=== PATIENT | female | born 1995 | race Two or more races ===

== ENCOUNTER 2017-06-17 10:19 | Emergency (ER) | payer OTHER ==
[2017-06-17] MEDS: IBUPROFEN 800 MG TAB PO ×2 (12:15)
== END 2017-06-17 12:15 | disposition home or self-care (01) ==
LOC: M ED 10:19
DX: S70.02XA Contusion of left hip, initial encounter (principal); V49.9XXA Car occupant (driver) (passenger) injured in unspecified traffic accident, initial encounter; Y92.410 Unspecified street and highway as the place of occurrence of the external cause; Y93.9 Activity, unspecified; Y99.9 Unspecified external cause status; F17.200 Nicotine dependence, unspecified, uncomplicated; Z79.3 Long term (current) use of hormonal contraceptives
CPT/HCPCS: 73502

== ENCOUNTER 2020-02-02 19:05 | Emergency (ER) | payer OTHER ==
[~2020-02-02] VITALS: Ht 157.5 cm; Wt 61.0 kg
[~2020-02-02 19:05] MED LIST: bcp PO
[2020-02-02] MEDS ORDERED: TOPA1TAB PO (19:14)
[2020-02-02] MEDS ORDERED: TEST200I14 IM (19:14)
[2020-02-02] MEDS ORDERED: PRAZ2CAP PO (19:14)
[2020-02-02] MEDS ORDERED: IBUPROFEN 800 MG TAB PO ONE (21:45)
[2020-02-02 22:41] LABS: CK-MB VALUE MASS < 1.0 NG/ML (<3.6); CPK CREATINE PHOSPHOKINASE 210 U/L (26-192); MB/CK RELATIVE INDEX 0.48 (< OR =4); TROPONIN I < 0.02 NG/ML (< 0.10)
[2020-02-02 23:04] VITALS: BP 121/69
--- NOTE | 2020-02-03 06:39 | ECGEPIP ---
[facility] - ED Test Date: 2020-02-02 Pat Name: CISCO MOROCHO Department: Room: - Gender: Female Marketing Finance Manager: FARIBA : 1995 Requested By: HEDY Posadas PA-C Order Number: [id number] Reading MD: Valerie Vargas Measurements Intervals [place] Rate: 57 P: 51 AR: 176 QRS: 97 QRSD: 98 T: 56 QT: 387 QTc: 380 Interpretive Statements SINUS BRADYCARDIA WITH SINUS ARRHYTHMIA BORDERLINE RIGHT AXIS DEVIATION DELAYED R WAVE PROGRESSION NONSPECIFIC ST T WAVE CHANGES NO PRIOR ECG FOR COMPARISON Electronically Signed on 02-03-2020 6:39:06 EST by Valerie Vargas
== END 2020-02-02 23:07 | disposition home or self-care (01) ==
LOC: M ED 19:05
DX: R07.89 Other chest pain (principal); N64.4 Mastodynia; Z79.899 Other long term (current) drug therapy; F17.210 Nicotine dependence, cigarettes, uncomplicated; F12.20 Cannabis dependence, uncomplicated

== ENCOUNTER → 2020-03-06 | Outpatient (CLI) | payer OTHER ==
[~2020-03-06] MED LIST changes: +PRAZ2CAP PO; +TEST200I14 IM; +TOPA1TAB PO
--- NOTE | 2020-03-06 13:12 | REP ---
INDICATION: MERVIN BREAST TENDERNESS ; MERVIN BREAST TENDERNESS,LT BREAST LUMP. COMPARISON: None TECHNIQUE: MLO and CC views of both breasts were performed with tomosynthesis. Focused right breast ultrasound performed. The patient indicates a palpable lump medial right breast, which isn't marked on the skin. FINDINGS: Breast parenchyma is extremely dense bilaterally limiting the sensitivity of mammogram. No mass or architectural distortion is seen bilaterally. There are no clustered microcalcifications. Real-time sonographic evaluation of right breast performed at the site of the palpable lump. No cystic or solid nodule is seen. The Volpara volumetric breast density pattern is D. IMPRESSION: BIRADS/ACR category 1, negative. Dense breast parenchyma bilaterally. No mass or clustered microcalcifications on mammography. No sonographic evidence of mass in the right breast in the region of the reported palpable lump. A negative mammogram and ultrasound should not deter biopsy if there is a clinically suspicious palpable mass present. Clinical correlation and follow-up recommended. This patient's Tyrer-Cuzick lifetime breast cancer risk assessment score is 14.9%. This mammogram was interpreted with the aid of an FDA-approved computer-aided detection system. The patient states she had a clinical breast exam in February 2020.. The patient letter being requested is and 2. RECOMMENDATION: Recommend clinical correlation and follow-up. <Electronically signed by Ej James > 03/06/20 [id number]
== END ==
LOC: M WHC 08:34
PROVIDERS: ATTEND Nurse Practitioner Family
DX: Z12.39 Encounter for other screening for malignant neoplasm of breast (principal); N63.20 Unspecified lump in the left breast, unspecified quadrant; N64.4 Mastodynia
CPT/HCPCS: 76642; 77066; G0279

== ENCOUNTER 2020-06-02 07:27 | Emergency (ER) | payer OTHER ==
[~2020-06-02] VITALS: Ht 157.5 cm; Wt 60.9 kg
[2020-06-02] MEDS ORDERED: GABA-1171 PO (07:36)
[2020-06-02] MEDS ORDERED: ZOLO100T PO (07:36)
[2020-06-02] MEDS ORDERED: KETOROLAC 60MG 2ML VIAL IM ONE (07:50)
[2020-06-02 08:51] VITALS: BP 109/69
== END 2020-06-02 08:52 | disposition home or self-care (01) ==
LOC: M ED 07:27
DX: G56.02 Carpal tunnel syndrome, left upper limb (principal); F41.9 Anxiety disorder, unspecified; J30.2 Other seasonal allergic rhinitis; Z91.040 Latex allergy status; Z79.899 Other long term (current) drug therapy; F12.20 Cannabis dependence, uncomplicated
CPT/HCPCS: 96372; 99283; J1885

== ENCOUNTER → 2020-06-23 | Outpatient (CLI) | payer OTHER ==
[~2020-06-23] MED LIST changes: +GABA-1171 PO; +ZOLO100T PO
== END ==
LOC: M LABSMTC 10:20
PROVIDERS: ATTEND Anesthesiology
DX: Z01.812 Encounter for preprocedural laboratory examination (principal); Z11.52 Encounter for screening for COVID-19

== ENCOUNTER 2020-06-28 07:52 | Day surgery (SDC) | payer OTHER ==
[~2020-06-28] VITALS: Ht 157.5 cm; Wt 59.0 kg
[~2020-06-28 07:52] MED LIST changes: +LR 1,000 ML IV ONE; +PROBCAP17 PO; +STRESS RELIEF PO; +TURM500C PO; +ceFAZolin SOD 2 GM in IV 1 EA IV ONE
[2020-06-28] MEDS ORDERED: LIDOCAINE 2% 100MG/5ML SDV (FOR ANES.) As Ordered ONE (09:25)
[2020-06-28] MEDS ORDERED: propofoL 200 MG/20 ML VIAL As Ordered ONE ×2 (09:25→09:28)
[2020-06-28] MEDS ORDERED: MIDAZOLAM INJ 2MG/2ML VIAL (J2250 PER 1MG) As Ordered ONE (09:26)
[2020-06-28] MEDS ORDERED: BUPIVACAINE/EPIN 0.25% 30 ML VIAL As Ordered ONE (11:08)
[2020-06-28] MEDS ORDERED: fentaNYL 100 MCG/2 ML INJECTION (J3010) As Ordered ONE (11:43)
--- NOTE | 2020-06-28 12:14 | ROOPDOC ---
[facility] Report Of Operation Report of Operation DATE OF PROCEDURE: 06/28/20 PREPROCEDURE DIAGNOSES: Left carpal tunnel syndrome. POSTPROCEDURE DIAGNOSES: Same. PROCEDURE: Left open carpal tunnel release. SURGEON: Dr. Lele Deleon MD CHILD PROTECTION SPECIALIST: None, ANESTHESIA: Local/Mac Dr Tan. ESTIMATED BLOOD LOSS: Approximately 5 mL. COMPLICATIONS: None. REMARKS: None. PROCEDURE NOTE: This 25-year-old was experiencing signs and symptoms of carpal tunnel syndrome on the left side. They had previously good results on right open carpal tunnel release. The patient wished to go ahead with open carpal tunnel release on the left side this was marked and had no further questions. I reiterated the pros and cons risks and benefits of nonsurgical versus surgical treatment. DESCRIPTION OF PROCEDURE: Patient was brought to the operating theater. They were placed supine on the operating room table. Hand table was used. Limb was prepped and draped in the usual sterile fashion. I used chlorhexidine-based prep solution allowing over 3 minutes drying time prior to draping. 2 g of IV Ancef was given prior to starting the case. Local/MAC anesthesia was used. Preoperative timeout was performed confirming the site the patient and the surgery. I began by infiltrating 6 mL of percent Marcaine with epinephrine in and around the proposed incision site. This was on the palmar surface just distal to the wrist crease longitudinally in line with the fourth digit. The incision length was approximately 2 cm. I allowed the local anesthetic time to work. I carried the dissection down through skin and subcutaneous tissue to meticulous h emostasis. I incised the palmar fascia in line with the skin incision. I incised the transverse carpal ligament in line with the skin incision fully proximally and distally. There was a wide space between the 2 leaflets. Nerve appeared in continuity throughout the case. I thoroughly irrigated the wound with normal saline. I closed the subcutaneous tissues with 2-0 Vicryl sutures and the skin with 3-0 Ethilon in a horizontal mattress fashion. Wound cleaned with wet and dry dressing followed by application of non stick dressing, 4 x 8 gauze and overwrapped with Dexter type dressing. Patient was woken up from their sedation and transferred off the operating room table and taken to postanesthetic care unit in stable condition. All sponge, needle, instrument counts were correct. No complications. The patient is to start immediate hand wrist and elbow exercises but avoid heavy lifting and gripping-type activities for the first 6 weeks. They will be discharged home according to day surgery criteria. They can change the dressing postoperative day 1 and avoid showering over top or getting it wet for the first 14 days. Follow-up in the office in 2 weeks' time. Postoperative wound instructions were given. It was recommended to keep the wound clean and dry. Dressing changes as needed. It was reinforced with the patient that they should call us or be seen immediately for redness, drainage, or fever.. LELE DELEON MD June 28, 2020 12:14
[2020-06-28 13:20] VITALS: BP 100/54
== END 2020-06-28 13:35 | disposition home or self-care (01) ==
LOC: M SDC 07:52
PROVIDERS: ATTEND Orthopaedic Surgery Sports Medicine
DX: G56.02 Carpal tunnel syndrome, left upper limb (principal); Z79.899 Other long term (current) drug therapy; Z91.040 Latex allergy status
CPT/HCPCS: 64721; 81025; J0690; J2250; J3010

== ENCOUNTER 2021-08-26 20:16 | Emergency (ER) | payer OTHER ==
[~2021-08-26] VITALS: Ht 157.5 cm; Wt 51.4 kg
[~2021-08-26 20:16] MED LIST changes: -LR 1,000 ML IV ONE; -ceFAZolin SOD 2 GM in IV 1 EA IV ONE
[2021-08-27 03:00] VITALS: BP 131/79
== END 2021-08-27 03:50 | disposition home or self-care (01) ==
LOC: M ED 20:16
DX: R20.2 Paresthesia of skin (principal); Z91.040 Latex allergy status; Z79.890 Hormone replacement therapy

== ENCOUNTER 2021-10-27 01:04 | Emergency (ER) | payer OTHER ==
[~2021-10-27] VITALS: Ht 157.5 cm; Wt 54.0 kg
[2021-10-27 01:08] VITALS: BP 114/67
== END 2021-10-27 03:49 | disposition left against medical advice (07) ==
LOC: M ED 01:04
DX: Z53.29 Procedure and treatment not carried out because of patient's decision for other reasons (principal)

== ENCOUNTER 2022-11-28 21:27 | Emergency (ER) | payer OTHER ==
[~2022-11-28] VITALS: Ht 160 cm; Wt 58.1 kg
[2022-11-28 21:29] VITALS: BP 127/78; TEMP 99.1; O2SAT 99
== END 2022-11-28 23:16 | disposition left against medical advice (07) ==
LOC: M ED 21:27
DX: Z53.21 Procedure and treatment not carried out due to patient leaving prior to being seen by health care provider (principal)

== ENCOUNTER 2023-06-09 11:02 | Emergency (ER) | payer MEDICAID, OTHER ==
[~2023-06-09] VITALS: Ht 157.5 cm; Wt 59.1 kg
[2023-06-09 11:14] VITALS: TEMP 98.7
[2023-06-09 11:47] LABS: BASO % 0.5 % (0.0-1.0); EOS # 0.1 10^3/uL (0.0-0.5); EOS % 0.7 % (0.0-3.0); HEMATOCRIT 42.1 % (36.0-47.0); HEMOGLOBIN 14.1 g/dl (12.0-15.5); IONIZED CALCIUM 4.7 MG/DL (4.5-5.3); LYMPH # 1.9 10^3/uL (1.5-5.0); LYMPH % 22.2 % (24.0-44.0); MEAN CORPUSCULAR HGB CONC 33.5 g/dl (32.0-36.5); MEAN CORPUSCULAR VOLUME 86.6 fl (80.0-96.0); MONO # 0.6 10^3/uL (0.0-0.8); MONO % 6.3 % (2.0-8.0); NEUTROPHILS # 6.1 10^3/uL (1.5-8.5); PLATELET COUNT, AUTOMATED 272 10^3/uL (150-450); RED BLOOD COUNT 4.86 10^6/uL (4.00-5.40); WHITE BLOOD COUNT 8.7 10^3/uL (4.0-10.0)
[2023-06-09] MEDS ORDERED: DIVA1TAB48 (12:05)
[2023-06-09 12:12] LABS: VALPROIC ACID (DEPAKOTE) 22.7 UG/ML (50.0-100.0)
[2023-06-09 12:14] LABS: ALBUMIN 3.6 G/DL (3.2-5.2); ALKALINE PHOSPHATASE 70 U/L (46-116); ALT/SGPT 24 U/L (7.0-40); AST/SGOT 12 U/L (<34); BILIRUBIN,DIRECT 0.2 MG/DL (<0.4); BILIRUBIN,TOTAL 0.6 MG/DL (0.3-1.2); BLOOD UREA NITROGEN 9 MG/DL (9-23); CALCIUM LEVEL 9.3 MG/DL (8.5-10.1); CARBON DIOXIDE LEVEL 24 MMOL/L (20-31); CHLORIDE LEVEL 110 MMOL/L (98-107); CREATININE FOR GFR 0.79 MG/DL (0.55-1.30); GLOMERULAR FILTRATION RATE > 60.0 (>60); GLUCOSE, FASTING 105 MG/DL (60-100); MAGNESIUM LEVEL 1.8 MG/DL (1.8-2.4); PHOSPHORUS LEVEL 1.7 MG/DL (2.5-4.9); POTASSIUM SERUM 4.4 MMOL/L (3.5-5.1); SODIUM LEVEL 141 MMOL/L (136-145); TOTAL PROTEIN 6.7 G/DL (5.7-8.2)
[2023-06-09 12:58] LABS: VENOUS HCO3 23.2 MMOL/L (23.0-27.0); VENOUS PARTIAL PRESSURE CO2 33.6 mmHg (38.0-50.0); VENOUS PARTIAL PRESSURE O2 58.3 mmHg (30.0-50.0); VENOUS PH 7.436 UNITS (7.330-7.430); VENOUS TOTAL CO2 23.1 MMOL/L (24.0-28.0)
[2023-06-09 12:59] LABS: VENOUS BASE EXCESS -1.3 (-2.0-2.0); VENOUS O2 SATURATION 91.1 % (60.0-80.0)
[2023-06-09 14:30] VITALS: BP 167/75; O2SAT 98
== END 2023-06-09 14:55 | disposition home or self-care (01) ==
LOC: EDSEX 11:02 → EDBD 11:02 → M ED 11:02
DX: G40.909 Epilepsy, unspecified, not intractable, without status epilepticus (principal); F32.A Depression, unspecified; F90.9 Attention-deficit hyperactivity disorder, unspecified type; F17.200 Nicotine dependence, unspecified, uncomplicated; F19.10 Other psychoactive substance abuse, uncomplicated; Z91.040 Latex allergy status; Z79.899 Other long term (current) drug therapy; Z79.890 Hormone replacement therapy

== ENCOUNTER → 2023-06-10 | Outpatient (CLI) | payer MEDICAID ==
[~2023-06-10] MED LIST changes: +DIVA1TAB48
[2023-06-10 12:40] LABS: ALBUMIN 3.7 G/DL (3.2-5.2); ALKALINE PHOSPHATASE 66 U/L (46-116); ALT/SGPT 21 U/L (7.0-40); AST/SGOT 9 U/L (<34); BILIRUBIN,TOTAL 0.5 MG/DL (0.3-1.2); BLOOD UREA NITROGEN 9 MG/DL (9-23); CALCIUM LEVEL 9.5 MG/DL (8.5-10.1); CARBON DIOXIDE LEVEL 27 MMOL/L (20-31); CHLORIDE LEVEL 107 MMOL/L (98-107); CREATININE FOR GFR 0.79 MG/DL (0.55-1.30); GLOMERULAR FILTRATION RATE > 60.0 (>60); GLUCOSE, FASTING 97 MG/DL (60-100); POTASSIUM SERUM 4.4 MMOL/L (3.5-5.1); SODIUM LEVEL 139 MMOL/L (136-145); THYROXINE (T4) 7.3 UG/DL (4.5-10.9); TOTAL PROTEIN 6.8 G/DL (5.7-8.2)
[2023-06-10 12:41] LABS: HEMOGLOBIN A1c 5.1 % (4.0-6.0); TESTOSTERONE 31 NG/DL (14-76)
== END ==
LOC: M LAB 11:39
PROVIDERS: ATTEND Nurse Practitioner Psychiatric/Mental Health
DX: F11.20 Opioid dependence, uncomplicated (principal)